=== PATIENT | male | born 1945 | race Caucasian/White ===

== ENCOUNTER 2024-09-23 09:09 | Outpatient (CLI) | payer OTHER, SELFPAY | END 2024-09-23 09:10 | disposition home or self-care (01) | LOC: RAD 09:15 | PROVIDERS: PCP Chiropractor; Visit Provider Chiropractor | DX: I25.10 Atherosclerotic heart disease of native coronary artery without angina pectoris (principal); I35.0 Nonrheumatic aortic (valve) stenosis; I51.7 Cardiomegaly | CPT/HCPCS: 93306 ==